=== PATIENT | female | born 1970 | race Caucasian/White ===

== ENCOUNTER 2017-05-14 19:30 | Emergency (ER) | payer OTHER ==
[2017-05-14] MEDS: ACETAMINOPHEN 500 MG TAB PO (21:00)
== END 2017-05-14 23:00 | disposition home or self-care (01) ==
LOC: FTE 19:30
DX: R05 Cough (principal)
CPT/HCPCS: 71045; 87400; 99284-25

== ENCOUNTER 2017-05-31 17:10 | Inpatient (IN) | payer OTHER ==
[2017-05-31 20:47] LABS: URINE BLOOD (Dip) POC 2+ (NEGATIVE); URINE GLUCOSE (Dip) POC Negative (NEGATIVE); URINE KETONES (Dip) POC Negative (NEGATIVE); URINE LEUKOCYTE EST (Dip) POC Negative (NEGATIVE); URINE NITRITE (Dip) POC Negative (NEGATIVE); URINE TOTAL PROTEIN POC Negative (NEGATIVE)
[2017-05-31] MEDS: ONDANSETRON 4 MG INJ IV (20:58)
[2017-05-31] MEDS: SOD CHLORIDE 0.9% 1,000 ML IV (20:58)
[2017-05-31] MEDS: KETOROLAC 30 MG INJ IV (20:58)
[2017-05-31 21:05] LABS: ADD MAN DIFF? NO
[2017-05-31 21:07] LABS: BASOPHIL # 0.1 10^3/ul (0.0-0.1); HEMATOCRIT 36.8 % (37.0-47.0); HEMOGLOBIN 12.7 g/dl (12.0-16.0); LYMPHOCYTES # 2.3 10^3/ul (0.8-2.9); LYMPHOCYTES % 32.7 % (15.0-51.0); MEAN CORPUSCULAR HEMOGLOBIN 29.1 pg (29.0-33.0); MEAN CORPUSCULAR HGB CONC 34.5 g/dl (32.0-37.0); MEAN CORPUSCULAR VOLUME 84.4 fl (82.0-101.0); MEAN PLATELET VOLUME 9.6 fl (7.4-10.4); MONOCYTE # 0.9 10^3/ul (0.3-0.9); MONOCYTES % 12.2 % (0.0-11.0); NEUTROPHIL # 3.9 10^3/ul (1.6-7.5); PLATELET COUNT 219 10^3/UL (140-415); RED BLOOD COUNT 4.36 10^6/ul (4.20-5.40); RED CELL DISTRIBUTION WIDTH 14.6 % (11.5-14.5)
[2017-05-31 21:07] LABS: WHITE BLOOD COUNT 7.2 10^3/ul (4.8-10.8)
[2017-05-31 21:28] LABS: ADD UMIC YES; UR ASCORBIC ACID NEGATIVE (NEGATIVE); UR BILIRUBIN (Dip) NEGATIVE (NEGATIVE); UR BLOOD (Dip) 3+ mg/dL (NEGATIVE); UR CLARITY CLEAR (CLEAR); UR COLOR YELLOW (YELLOW); UR GLUCOSE (Dip) NEGATIVE (NEGATIVE); UR KETONES (Dip) NEGATIVE (NEGATIVE); UR LEUKOCYTE ESTERASE (Dip) NEGATIVE Leu/ul (NEGATIVE); UR NITRITE (Dip) NEGATIVE (NEGATIVE); UR RBC 9 /HPF (0-5); UR SPECIFIC GRAVITY (Dip) 1.002 (1.003-1.030); UR TOTAL PROTEIN (Dip) NEGATIVE (NEGATIVE); UR UROBILINOGEN (Dip) NEGATIVE (NEGATIVE); UR WBC 3 /HPF (0-5)
[2017-05-31 21:31] LABS: ALBUMIN 3.8 g/dl (3.3-4.9); ALBUMIN/GLOBULIN RATIO 0.73; ALKALINE PHOSPHATASE 219 IU/L (42-121); ANION GAP 17 (8-16); BILIRUBIN,INDIRECT 1.3 mg/dl (0-1.1); BILIRUBIN,TOTAL 5.8 mg/dl (0.2-1.3); BLOOD UREA NITROGEN 7 mg/dl (7-20); CALCIUM 8.7 mg/dl (8.4-10.2); CARBON DIOXIDE 22 mmol/L (21-31); CHLORIDE 102 mmol/L (97-110); CREATININE 0.57 mg/dl (0.44-1.00); GLUCOSE 85 mg/dl (70-220); LIPASE 161 U/L (23-300); POTASSIUM 3.1 mmol/L (3.5-5.1); SODIUM 138 mmol/L (135-144)
[2017-05-31 21:39] LABS: ALANINE AMINOTRANSFERASE 1586 IU/L (13-69); ASPARTATE AMINO TRANSFERASE 1473 IU/L (15-46)
[2017-06-01] MEDS ORDERED: ZOLPIDEM 5 MG TAB PO (01:00)
[2017-06-01] MEDS ORDERED: HYDROCODONE/APAP (5/325) TAB PO (01:00)
[2017-06-01] MEDS ORDERED: ONDANSETRON 4 MG INJ IV (01:00)
[2017-06-01] MEDS ORDERED: ACETAMINOPHEN 325 MG TAB PO (01:00)
[2017-06-01] MEDS ORDERED: morphine 2 MG INJ IV (01:00)
[2017-06-01] MEDS: NACL 0.9% 3 ML SYG IV ×2 (03:10→11:21)
[2017-06-01] MEDS: 1/2 NS + KCL 20 MEQ 1,000 ML IV (03:10)
[2017-06-01 05:43] LABS: ADD MAN DIFF? NO; HAAIG REFLEX REFLEX FILED
[2017-06-01 05:51] LABS: BASOPHIL # 0.1 10^3/ul (0.0-0.1); BASOPHILS % 1.3 % (0.0-2.0); HEMATOCRIT 32.8 % (37.0-47.0); HEMOGLOBIN 11.6 g/dl (12.0-16.0); LYMPHOCYTES # 1.7 10^3/ul (0.8-2.9); LYMPHOCYTES % 31.3 % (15.0-51.0); MEAN CORPUSCULAR HEMOGLOBIN 29.4 pg (29.0-33.0); MEAN CORPUSCULAR HGB CONC 35.4 g/dl (32.0-37.0); MEAN CORPUSCULAR VOLUME 83.2 fl (82.0-101.0); MEAN PLATELET VOLUME 10.4 fl (7.4-10.4); MONOCYTE # 0.6 10^3/ul (0.3-0.9); MONOCYTES % 11.2 % (0.0-11.0); PLATELET COUNT 199 10^3/UL (140-415); RED BLOOD COUNT 3.94 10^6/ul (4.20-5.40); RED CELL DISTRIBUTION WIDTH 14.8 % (11.5-14.5)
[2017-06-01 05:51] LABS: WHITE BLOOD COUNT 5.3 10^3/ul (4.8-10.8)
[2017-06-01 06:14] LABS: ALBUMIN 2.9 g/dl (3.3-4.9); ALBUMIN/GLOBULIN RATIO 0.65; ALKALINE PHOSPHATASE 172 IU/L (42-121); ANION GAP 13 (8-16); BILIRUBIN,INDIRECT 1.2 mg/dl (0-1.1); BILIRUBIN,TOTAL 5.4 mg/dl (0.2-1.3); BLOOD UREA NITROGEN 6 mg/dl (7-20); CALCIUM 7.8 mg/dl (8.4-10.2); CARBON DIOXIDE 23 mmol/L (21-31); CHLORIDE 109 mmol/L (97-110); CREATININE 0.51 mg/dl (0.44-1.00); GLUCOSE 70 mg/dl (70-220); MAGNESIUM 1.9 mg/dl (1.7-2.5); PHOSPHORUS 3.7 mg/dl (2.5-4.9); POTASSIUM 3.6 mmol/L (3.5-5.1); SODIUM 141 mmol/L (135-144); TOTAL PROTEIN 7.3 g/dl (6.1-8.1)
[2017-06-01 06:23] LABS: ALANINE AMINOTRANSFERASE 1285 IU/L (13-69); ASPARTATE AMINO TRANSFERASE 1329 IU/L (15-46)
[2017-06-01 06:55] LABS: HEPATITIS B SURFACE ANTIGEN NEGATIVE (NEGATIVE)
[2017-06-01 07:13] LABS: HEPATITIS B CORE ANTIBODY NEGATIVE (NEGATIVE); HEPATITIS C VIRAL ANTIBODY NEGATIVE (NEGATIVE)
[2017-06-01 07:14] LABS: HEMOGLOBIN A1C 5.2 % (0-5.9)
[2017-06-01] MEDS: SOD CHLORIDE 0.45% 1,000 ML IV (11:21)
[2017-06-01 18:02] LABS: CARCINOEMBRYONIC ANTIGEN 1.2 ng/ml (0.0-5.0)
[2017-06-01 18:02] LABS: CANCER ANTIGEN 125 26.8 U/ml (0.0-35.0)
[2017-06-01 18:06] LABS: CANCER ANTIGEN 19-9 55.7 U/ml (0.0-37.0)
[2017-06-02] MEDS: SOD CHLORIDE 0.45% 1,000 ML IV ×3 (01:18→19:22)
[2017-06-02 06:11] LABS: ADD MAN DIFF? NO
[2017-06-02 06:15] LABS: BASOPHIL # 0.1 10^3/ul (0.0-0.1); BASOPHILS % 1.5 % (0.0-2.0); HEMATOCRIT 32.7 % (37.0-47.0); HEMOGLOBIN 11.5 g/dl (12.0-16.0); LYMPHOCYTES # 1.2 10^3/ul (0.8-2.9); LYMPHOCYTES % 29.2 % (15.0-51.0); MEAN CORPUSCULAR HEMOGLOBIN 29.4 pg (29.0-33.0); MEAN CORPUSCULAR HGB CONC 35.2 g/dl (32.0-37.0); MEAN CORPUSCULAR VOLUME 83.6 fl (82.0-101.0); MEAN PLATELET VOLUME 9.8 fl (7.4-10.4); MONOCYTE # 0.5 10^3/ul (0.3-0.9); MONOCYTES % 12.2 % (0.0-11.0); NEUTROPHIL # 2.3 10^3/ul (1.6-7.5); NEUTROPHILS % 56.9 % (39.0-77.0); PLATELET COUNT 209 10^3/UL (140-415); RED BLOOD COUNT 3.91 10^6/ul (4.20-5.40); RED CELL DISTRIBUTION WIDTH 14.7 % (11.5-14.5)
[2017-06-02 06:15] LABS: WHITE BLOOD COUNT 4.1 10^3/ul (4.8-10.8)
[2017-06-02 06:35] LABS: INR 1.68; PROTIME 20.1 Sec (11.9-14.9); PT RATIO 1.6
[2017-06-02 06:43] LABS: MAGNESIUM 1.8 mg/dl (1.7-2.5)
[2017-06-02 06:54] LABS: ALBUMIN 2.6 g/dl (3.3-4.9); ALBUMIN/GLOBULIN RATIO 0.65; ALKALINE PHOSPHATASE 144 IU/L (42-121); ANION GAP 9 (8-16); BILIRUBIN,INDIRECT 1.5 mg/dl (0-1.1); BILIRUBIN,TOTAL 6.7 mg/dl (0.2-1.3); BLOOD UREA NITROGEN 7 mg/dl (7-20); CALCIUM 7.8 mg/dl (8.4-10.2); CARBON DIOXIDE 27 mmol/L (21-31); CHLORIDE 109 mmol/L (97-110); CREATININE 0.58 mg/dl (0.44-1.00); GLUCOSE 69 mg/dl (70-220); POTASSIUM 3.8 mmol/L (3.5-5.1); SODIUM 141 mmol/L (135-144); TOTAL PROTEIN 6.6 g/dl (6.1-8.1)
[2017-06-02 07:39] LABS: ALANINE AMINOTRANSFERASE 1180 IU/L (13-69); ASPARTATE AMINO TRANSFERASE 1484 IU/L (15-46)
[2017-06-02] MEDS: SUCRALFATE (100 MG/ML) 10ML CUP PO ×2 (16:43→21:38)
[2017-06-03] MEDS: SOD CHLORIDE 0.45% 1,000 ML IV ×2 (05:54→20:23)
[2017-06-03] MEDS: PANTOPRAZOLE 40 MG INJ IV (06:13)
[2017-06-03 07:07] LABS: ALBUMIN 2.6 g/dl (3.3-4.9); ALBUMIN/GLOBULIN RATIO 0.66; ALKALINE PHOSPHATASE 137 IU/L (42-121); ANION GAP 12 (8-16); BILIRUBIN,TOTAL 8.8 mg/dl (0.2-1.3); BLOOD UREA NITROGEN 4 mg/dl (7-20); CALCIUM 8.1 mg/dl (8.4-10.2); CARBON DIOXIDE 25 mmol/L (21-31); CHLORIDE 110 mmol/L (97-110); CREATININE 0.48 mg/dl (0.44-1.00); GLUCOSE 73 mg/dl (70-220); SODIUM 143 mmol/L (135-144); TOTAL PROTEIN 6.5 g/dl (6.1-8.1)
[2017-06-03 07:15] LABS: ALANINE AMINOTRANSFERASE 1139 IU/L (13-69); ASPARTATE AMINO TRANSFERASE 1392 IU/L (15-46)
[2017-06-03 07:23] LABS: MAGNESIUM 1.8 mg/dl (1.7-2.5)
[2017-06-03 07:38] LABS: THYROID STIMULATING HORMONE 0.434 MIU/L (0.465-4.680)
[2017-06-03] MEDS: SUCRALFATE (100 MG/ML) 10ML CUP PO ×4 (09:00→20:24)
[2017-06-03 13:52] LABS: IRON 143 ug/dl (35-150)
[2017-06-03 14:08] LABS: % IRON SATURATION 33 % SAT (22-52); TOTAL IRON BINDING CAPACITY 428 ug/dl (241-421)
[2017-06-03 14:28] LABS: FERRITIN 58.4 ng/ml (6.2-137.0)
[2017-06-03] MEDS: LIDOCAINE 1% (MDV) 10 ML INJ (14:32)
[2017-06-03] MEDS: PHYTONADIONE 10 MG/ML INJ SC (15:04)
[2017-06-03 15:23] LABS: MITOCHONDRIAL TB NEGATIVE (NEGATIVE); SMOOTH MUSCLE AB SCREEN POSITIVE (NEGATIVE)
[2017-06-03 15:24] LABS: TYPE AND SCREEN 1 1
[2017-06-03 16:37] LABS: ADD MAN DIFF? NO
[2017-06-03 16:38] LABS: WHITE BLOOD COUNT 4.1 10^3/ul (4.8-10.8)
[2017-06-03 16:38] LABS: BASOPHILS % 0.5 % (0.0-2.0); HEMATOCRIT 31.2 % (37.0-47.0); HEMOGLOBIN 10.8 g/dl (12.0-16.0); LYMPHOCYTES # 1.2 10^3/ul (0.8-2.9); LYMPHOCYTES % 28.1 % (15.0-51.0); MEAN CORPUSCULAR HGB CONC 34.6 g/dl (32.0-37.0); MEAN CORPUSCULAR VOLUME 83.9 fl (82.0-101.0); MEAN PLATELET VOLUME 9.3 fl (7.4-10.4); MONOCYTE # 0.4 10^3/ul (0.3-0.9); NEUTROPHIL # 2.6 10^3/ul (1.6-7.5); NEUTROPHILS % 61.9 % (39.0-77.0); PLATELET COUNT 204 10^3/UL (140-415); RED BLOOD COUNT 3.72 10^6/ul (4.20-5.40); RED CELL DISTRIBUTION WIDTH 15.1 % (11.5-14.5)
[2017-06-03 19:57] LABS: ANA SCREEN POSITIVE (NEGATIVE)
[2017-06-03 21:22] LABS: ANA PATTERN NUCLEOLAR; ANA TITER 1:40 titer
[2017-06-04] MEDS: PANTOPRAZOLE 40 MG INJ IV (05:14)
[2017-06-04 06:14] LABS: ADD MAN DIFF? NO
[2017-06-04 06:24] LABS: BASOPHILS % 0.6 % (0.0-2.0); HEMATOCRIT 29.6 % (37.0-47.0); HEMOGLOBIN 10.6 g/dl (12.0-16.0); LYMPHOCYTES # 1.3 10^3/ul (0.8-2.9); MEAN CORPUSCULAR HEMOGLOBIN 29.3 pg (29.0-33.0); MEAN CORPUSCULAR HGB CONC 35.8 g/dl (32.0-37.0); MEAN CORPUSCULAR VOLUME 81.8 fl (82.0-101.0); MEAN PLATELET VOLUME 10.3 fl (7.4-10.4); MONOCYTE # 0.4 10^3/ul (0.3-0.9); MONOCYTES % 11.1 % (0.0-11.0); NEUTROPHIL # 1.6 10^3/ul (1.6-7.5); PLATELET COUNT 203 10^3/UL (140-415); RED BLOOD COUNT 3.62 10^6/ul (4.20-5.40); RED CELL DISTRIBUTION WIDTH 15.2 % (11.5-14.5)
[2017-06-04 06:24] LABS: WHITE BLOOD COUNT 3.3 10^3/ul (4.8-10.8)
[2017-06-04 06:39] LABS: INR 1.51; PROTIME 18.5 Sec (11.9-14.9); PT RATIO 1.4
[2017-06-04 06:40] LABS: PARTIAL THROMBOPLASTIN TIME 40.8 Sec (25.0-35.0)
[2017-06-04 06:46] LABS: ANION GAP 15 (8-16); BLOOD UREA NITROGEN 4 mg/dl (7-20); CALCIUM 8.3 mg/dl (8.4-10.2); CARBON DIOXIDE 25 mmol/L (21-31); CHLORIDE 106 mmol/L (97-110); CREATININE 0.57 mg/dl (0.44-1.00); GLUCOSE 69 mg/dl (70-220); MAGNESIUM 1.8 mg/dl (1.7-2.5); PHOSPHORUS 3.6 mg/dl (2.5-4.9); POTASSIUM 3.6 mmol/L (3.5-5.1); SODIUM 142 mmol/L (135-144)
[2017-06-04 07:02] LABS: FREE T4 (FREE THYROXINE) 1.91 ng/dl (0.64-1.79)
[2017-06-04 07:17] LABS: THYROID STIMULATING HORMONE 0.415 MIU/L (0.465-4.680)
[2017-06-04 08:06] LABS: ERYTHROCYTE SEDIMENTATION RATE 20 mm/Hr (0-20)
[2017-06-04] MEDS: SUCRALFATE (100 MG/ML) 10ML CUP PO ×4 (08:19→20:19)
[2017-06-04 10:21] LABS: ALANINE AMINOTRANSFERASE 932 IU/L (13-69); ALBUMIN 3.3 g/dl (3.3-4.9); ALKALINE PHOSPHATASE 153 IU/L (42-121); BILIRUBIN,INDIRECT 2.3 mg/dl (0-1.1); BILIRUBIN,TOTAL 9.1 mg/dl (0.2-1.3); TOTAL PROTEIN 7.9 g/dl (6.1-8.1)
[2017-06-04] MEDS: SOD CHLORIDE 0.45% 1,000 ML IV ×2 (10:21→23:08)
[2017-06-04 10:33] LABS: ASPARTATE AMINO TRANSFERASE 1318 IU/L (15-46)
[2017-06-04 19:50] LABS: IMMUNOGLOBULIN A 157 mg/dl (70-400); IMMUNOGLOBULIN G 2516 mg/dl (700-1600); IMMUNOGLOBULIN M 152 mg/dl (40-230)
[2017-06-05 05:49] LABS: ADD MAN DIFF? NO
[2017-06-05 05:54] LABS: BASOPHILS % 0.8 % (0.0-2.0); HEMATOCRIT 31.3 % (37.0-47.0); HEMOGLOBIN 10.8 g/dl (12.0-16.0); LYMPHOCYTES # 1.5 10^3/ul (0.8-2.9); LYMPHOCYTES % 41.5 % (15.0-51.0); MEAN CORPUSCULAR HEMOGLOBIN 28.4 pg (29.0-33.0); MEAN CORPUSCULAR HGB CONC 34.5 g/dl (32.0-37.0); MEAN CORPUSCULAR VOLUME 82.4 fl (82.0-101.0); MEAN PLATELET VOLUME 10.3 fl (7.4-10.4); MONOCYTE # 0.5 10^3/ul (0.3-0.9); MONOCYTES % 13.8 % (0.0-11.0); NEUTROPHIL # 1.6 10^3/ul (1.6-7.5); NEUTROPHILS % 43.6 % (39.0-77.0); PLATELET COUNT 203 10^3/UL (140-415); RED CELL DISTRIBUTION WIDTH 15.5 % (11.5-14.5)
[2017-06-05 05:54] LABS: WHITE BLOOD COUNT 3.7 10^3/ul (4.8-10.8)
[2017-06-05] MEDS: PANTOPRAZOLE 40 MG INJ IV (05:56)
[2017-06-05 06:48] LABS: MAGNESIUM 1.8 mg/dl (1.7-2.5)
[2017-06-05 06:59] LABS: ALANINE AMINOTRANSFERASE 786 IU/L (13-69); ALBUMIN 2.9 g/dl (3.3-4.9); ALBUMIN/GLOBULIN RATIO 0.67; ALKALINE PHOSPHATASE 148 IU/L (42-121); ANION GAP 14 (8-16); BILIRUBIN,INDIRECT 2.2 mg/dl (0-1.1); BLOOD UREA NITROGEN 3 mg/dl (7-20); CALCIUM 8.3 mg/dl (8.4-10.2); CARBON DIOXIDE 23 mmol/L (21-31); CHLORIDE 107 mmol/L (97-110); CREATININE 0.53 mg/dl (0.44-1.00); GLUCOSE 71 mg/dl (70-220); POTASSIUM 4.1 mmol/L (3.5-5.1); SODIUM 140 mmol/L (135-144); TOTAL PROTEIN 7.2 g/dl (6.1-8.1)
[2017-06-05 07:12] LABS: ASPARTATE AMINO TRANSFERASE 945 IU/L (15-46)
[2017-06-05] MEDS: SUCRALFATE (100 MG/ML) 10ML CUP PO ×4 (08:26→20:02)
[2017-06-05] MEDS: SOD CHLORIDE 0.45% 1,000 ML IV ×2 (13:31→15:06)
[2017-06-05] MEDS: DOCUSATE SODIUM 100 MG CAP PO (13:47)
[2017-06-06] MEDS: SOD CHLORIDE 0.45% 1,000 ML IV ×3 (05:51→20:12)
[2017-06-06] MEDS: PANTOPRAZOLE 40 MG INJ IV (05:51)
[2017-06-06 06:25] LABS: ADD MAN DIFF? NO
[2017-06-06 06:33] LABS: WHITE BLOOD COUNT 4.5 10^3/ul (4.8-10.8)
[2017-06-06 06:33] LABS: BASOPHILS % 0.9 % (0.0-2.0); HEMATOCRIT 31.9 % (37.0-47.0); LYMPHOCYTES # 1.9 10^3/ul (0.8-2.9); MEAN CORPUSCULAR HEMOGLOBIN 28.9 pg (29.0-33.0); MEAN CORPUSCULAR HGB CONC 34.5 g/dl (32.0-37.0); MEAN CORPUSCULAR VOLUME 83.7 fl (82.0-101.0); MEAN PLATELET VOLUME 10.5 fl (7.4-10.4); MONOCYTE # 0.6 10^3/ul (0.3-0.9); MONOCYTES % 12.3 % (0.0-11.0); NEUTROPHIL # 2.1 10^3/ul (1.6-7.5); NEUTROPHILS % 45.6 % (39.0-77.0); PLATELET COUNT 234 10^3/UL (140-415); RED BLOOD COUNT 3.81 10^6/ul (4.20-5.40); RED CELL DISTRIBUTION WIDTH 15.8 % (11.5-14.5)
[2017-06-06 06:55] LABS: MAGNESIUM 1.7 mg/dl (1.7-2.5)
[2017-06-06 06:57] LABS: ALANINE AMINOTRANSFERASE 709 IU/L (13-69); ALBUMIN/GLOBULIN RATIO 0.65; ALKALINE PHOSPHATASE 145 IU/L (42-121); ANION GAP 14 (8-16); ASPARTATE AMINO TRANSFERASE 741 IU/L (15-46); BILIRUBIN,INDIRECT 2.2 mg/dl (0-1.1); BILIRUBIN,TOTAL 9.2 mg/dl (0.2-1.3); BLOOD UREA NITROGEN 4 mg/dl (7-20); CALCIUM 8.3 mg/dl (8.4-10.2); CARBON DIOXIDE 24 mmol/L (21-31); CHLORIDE 105 mmol/L (97-110); CREATININE 0.58 mg/dl (0.44-1.00); GLUCOSE 65 mg/dl (70-220); POTASSIUM 3.9 mmol/L (3.5-5.1); SODIUM 139 mmol/L (135-144); TOTAL PROTEIN 7.6 g/dl (6.1-8.1)
[2017-06-06] MEDS: SUCRALFATE (100 MG/ML) 10ML CUP PO ×4 (08:26→20:12)
[2017-06-06] MEDS: DOCUSATE SODIUM 100 MG CAP PO (09:23)
[2017-06-07] MEDS: PANTOPRAZOLE 40 MG INJ IV (05:28)
[2017-06-07 05:43] LABS: ADD MAN DIFF? NO
[2017-06-07 05:48] LABS: WHITE BLOOD COUNT 5.2 10^3/ul (4.8-10.8)
[2017-06-07 05:48] LABS: BASOPHIL # 0.1 10^3/ul (0.0-0.1); HEMATOCRIT 31.8 % (37.0-47.0); HEMOGLOBIN 11.1 g/dl (12.0-16.0); LYMPHOCYTES % 37.6 % (15.0-51.0); MEAN CORPUSCULAR HEMOGLOBIN 28.9 pg (29.0-33.0); MEAN CORPUSCULAR HGB CONC 34.9 g/dl (32.0-37.0); MEAN CORPUSCULAR VOLUME 82.8 fl (82.0-101.0); MEAN PLATELET VOLUME 9.7 fl (7.4-10.4); MONOCYTE # 0.6 10^3/ul (0.3-0.9); MONOCYTES % 10.8 % (0.0-11.0); NEUTROPHIL # 2.6 10^3/ul (1.6-7.5); NEUTROPHILS % 50.2 % (39.0-77.0); PLATELET COUNT 220 10^3/UL (140-415); RED BLOOD COUNT 3.84 10^6/ul (4.20-5.40); RED CELL DISTRIBUTION WIDTH 15.9 % (11.5-14.5)
[2017-06-07 06:10] LABS: MAGNESIUM 1.7 mg/dl (1.7-2.5)
[2017-06-07 06:11] LABS: ALANINE AMINOTRANSFERASE 615 IU/L (13-69); ALKALINE PHOSPHATASE 141 IU/L (42-121); ANION GAP 11 (8-16); ASPARTATE AMINO TRANSFERASE 680 IU/L (15-46); BILIRUBIN,INDIRECT 2.3 mg/dl (0-1.1); BLOOD UREA NITROGEN 3 mg/dl (7-20); CALCIUM 8.4 mg/dl (8.4-10.2); CARBON DIOXIDE 26 mmol/L (21-31); CHLORIDE 108 mmol/L (97-110); CREATININE 0.56 mg/dl (0.44-1.00); GLUCOSE 71 mg/dl (70-220); POTASSIUM 3.9 mmol/L (3.5-5.1); SODIUM 141 mmol/L (135-144)
[2017-06-07 06:12] LABS: ALBUMIN 2.8 g/dl (3.3-4.9); ALBUMIN/GLOBULIN RATIO 0.63; BILIRUBIN,TOTAL 9.8 mg/dl (0.2-1.3); TOTAL PROTEIN 7.2 g/dl (6.1-8.1)
[2017-06-07] MEDS: SUCRALFATE (100 MG/ML) 10ML CUP PO ×4 (08:56→20:16)
[2017-06-07] MEDS: SOD CHLORIDE 0.45% 1,000 ML IV ×2 (10:00→11:14)
[2017-06-08] MEDS: SOD CHLORIDE 0.45% 1,000 ML IV (00:28)
[2017-06-08] MEDS: PANTOPRAZOLE 40 MG INJ IV (05:09)
[2017-06-08 06:10] LABS: ADD MAN DIFF? NO
[2017-06-08 06:30] LABS: BASOPHILS % 0.9 % (0.0-2.0); HEMATOCRIT 32.9 % (37.0-47.0); HEMOGLOBIN 11.4 g/dl (12.0-16.0); LYMPHOCYTES # 1.5 10^3/ul (0.8-2.9); LYMPHOCYTES % 34.4 % (15.0-51.0); MEAN CORPUSCULAR HEMOGLOBIN 28.8 pg (29.0-33.0); MEAN CORPUSCULAR HGB CONC 34.7 g/dl (32.0-37.0); MEAN CORPUSCULAR VOLUME 83.1 fl (82.0-101.0); MEAN PLATELET VOLUME 12.3 fl (7.4-10.4); MONOCYTE # 0.5 10^3/ul (0.3-0.9); MONOCYTES % 11.2 % (0.0-11.0); NEUTROPHIL # 2.3 10^3/ul (1.6-7.5); PLATELET COUNT 179 10^3/UL (140-415); RED BLOOD COUNT 3.96 10^6/ul (4.20-5.40); RED CELL DISTRIBUTION WIDTH 16.2 % (11.5-14.5)
[2017-06-08 06:30] LABS: WHITE BLOOD COUNT 4.3 10^3/ul (4.8-10.8)
[2017-06-08 06:38] LABS: ALANINE AMINOTRANSFERASE 527 IU/L (13-69); ALBUMIN/GLOBULIN RATIO 0.65; ALKALINE PHOSPHATASE 153 IU/L (42-121); ANION GAP 14 (8-16); ASPARTATE AMINO TRANSFERASE 606 IU/L (15-46); BILIRUBIN,TOTAL 9.2 mg/dl (0.2-1.3); BLOOD UREA NITROGEN 3 mg/dl (7-20); CALCIUM 8.2 mg/dl (8.4-10.2); CARBON DIOXIDE 25 mmol/L (21-31); CHLORIDE 105 mmol/L (97-110); CREATININE 0.55 mg/dl (0.44-1.00); GLUCOSE 76 mg/dl (70-220); POTASSIUM 3.8 mmol/L (3.5-5.1); SODIUM 140 mmol/L (135-144); TOTAL PROTEIN 7.6 g/dl (6.1-8.1)
[2017-06-08 06:38] LABS: MAGNESIUM 1.8 mg/dl (1.7-2.5)
[2017-06-08] MEDS: SUCRALFATE (100 MG/ML) 10ML CUP PO (08:31)
[2017-06-08] MEDS: predniSONE 20 MG TAB PO (08:31)
== END 2017-06-08 11:45 | disposition home or self-care (01) | DRG 443 ==
LOC: FTE 17:10 → MS2 23:34
PROC: 0FB13ZX Excision of Right Lobe Liver, Percutaneous Approach, Diagnostic (ICD-10-PCS; principal; 2017-06-03)
DX: R17 Unspecified jaundice (principal); E05.00 Thyrotoxicosis with diffuse goiter without thyrotoxic crisis or storm; R74.8 Abnormal levels of other serum enzymes; R97.1 Elevated cancer antigen 125 [CA 125]; R10.13 Epigastric pain; D64.9 Anemia, unspecified; R68.81 Early satiety; R74.0 Nonspecific elevation of levels of transaminase and lactic acid dehydrogenase [LDH]; E21.3 Hyperparathyroidism, unspecified; K59.00 Constipation, unspecified; E80.6 Other disorders of bilirubin metabolism; R60.9 Edema, unspecified
CPT/HCPCS: 36415; 36430; 74176; 74181; 76536; 76705; 76942; 80048; 80053; 80076; 81001; 81003; 81025; 82378; 82728; 82784; 82787; 83036; 83540; 83690; 83735; 84100; 84439; 84443; 84481; 84703; 85025; 85610; 85651; 85730; 86038; 86255; 86301; 86304; 86376; 86704; 86709; 86803; 86850; 86900; 86901; 87340; 87496; 88307; 88313; 96374; 96375; 99285-25

== ENCOUNTER 2018-09-12 16:35 | Emergency (ER) | payer OTHER ==
[2018-09-12 19:43] LABS: ADD MAN DIFF? NO
[2018-09-12 19:44] LABS: BASOPHILS % 0.5 % (0.0-2.0); EOSINOPHILS # 0.1 10^3/ul (0.0-0.5); EOSINOPHILS % 1.7 % (0.0-7.0); HEMATOCRIT 34.2 % (37.0-47.0); HEMOGLOBIN 10.9 g/dl (12.0-16.0); LYMPHOCYTES # 1.5 10^3/ul (0.8-2.9); LYMPHOCYTES % 18.7 % (15.0-51.0); MEAN CORPUSCULAR HEMOGLOBIN 26.4 pg (29.0-33.0); MEAN CORPUSCULAR HGB CONC 31.9 g/dl (32.0-37.0); MEAN CORPUSCULAR VOLUME 82.8 fl (82.0-101.0); MONOCYTE # 0.7 10^3/ul (0.3-0.9); MONOCYTES % 8.4 % (0.0-11.0); NEUTROPHIL # 5.5 10^3/ul (1.6-7.5); NEUTROPHILS % 70.4 % (39.0-77.0); PLATELET COUNT 334 10^3/UL (140-415); RED BLOOD COUNT 4.13 10^6/ul (4.20-5.40); RED CELL DISTRIBUTION WIDTH 16.5 % (11.5-14.5)
[2018-09-12 19:44] LABS: WHITE BLOOD COUNT 7.8 10^3/ul (4.8-10.8)
[2018-09-12 19:56] LABS: ADD UMIC NO; UR ASCORBIC ACID NEGATIVE (NEGATIVE); UR BILIRUBIN (Dip) NEGATIVE (NEGATIVE); UR BLOOD (Dip) NEGATIVE (NEGATIVE); UR CLARITY CLEAR (CLEAR); UR COLOR YELLOW (YELLOW); UR GLUCOSE (Dip) NEGATIVE (NEGATIVE); UR KETONES (Dip) NEGATIVE (NEGATIVE); UR LEUKOCYTE ESTERASE (Dip) NEGATIVE Leu/ul (NEGATIVE); UR NITRITE (Dip) NEGATIVE (NEGATIVE); UR SPECIFIC GRAVITY (Dip) 1.006 (1.003-1.030); UR TOTAL PROTEIN (Dip) NEGATIVE (NEGATIVE); UR UROBILINOGEN (Dip) NEGATIVE (NEGATIVE)
[2018-09-12 20:01] LABS: ALANINE AMINOTRANSFERASE 784 IU/L (13-69); ALBUMIN 3.8 g/dl (3.3-4.9); ALBUMIN/GLOBULIN RATIO 0.88; ALKALINE PHOSPHATASE 118 IU/L (42-121); ANION GAP 8 (5-13); ASPARTATE AMINO TRANSFERASE 589 IU/L (15-46); BILIRUBIN,INDIRECT 0.8 mg/dl (0-1.1); BILIRUBIN,TOTAL 0.8 mg/dl (0.2-1.3); BLOOD UREA NITROGEN 8 mg/dl (7-20); CALCIUM 8.6 mg/dl (8.4-10.2); CARBON DIOXIDE 27 mmol/L (21-31); CHLORIDE 106 mmol/L (97-110); CREATININE 0.52 mg/dl (0.44-1.00); Estimated GFR > 60 mL/min (>60); GLUCOSE 110 mg/dl (70-220); LIPASE 188 U/L (23-300); POTASSIUM 3.7 mmol/L (3.5-5.1); SODIUM 141 mmol/L (135-144); TOTAL PROTEIN 8.1 g/dl (6.1-8.1)
== END 2018-09-12 21:24 | disposition home or self-care (01) ==
LOC: FTE 16:35
DX: K75.4 Autoimmune hepatitis (principal)
CPT/HCPCS: 80053; 81003; 81025; 83690; 85025; 99283